=== PATIENT | female | born 1980 | race Caucasian/White ===

== ENCOUNTER 2018-03-05 12:05 | Inpatient (IN) | payer OTHER ==
[~2018-03-05] VITALS: Ht 165.1 cm; Wt 67.7 kg
[~2018-03-05 12:05] MED LIST: ANUSOL1 EACH R; ATIVAN0.5 MG PO; ATIVAN1 MG PO; CLARITIN10 MG PO; DEPO-PROVER150 MG/ML IM; ESTRACE1 M1 PO; METAMUCIL MULTI1 CAP PO; METAMUCIL0.52 G1 PO; NOVAPLUS V0.09 MG/Ac INH; PERCOCET 325 MG1 TA5 PO; PRILOSEC OTC20 MG PO; STOOL SOFTENER100 M3 PO; ZITHROMAX Z PA250 MG PO
[2018-03-05 13:00] VITALS: BP 121/74
[2018-03-05 13:48] LABS: BILIRUBIN NEGATIVE (NEGATIVE); BLOOD NEGATIVE (NEGATIVE); CLARITY CLEAR (CLEAR); COLOR YELLOW (YELLOW); GLUCOSE NEGATIVE (NEGATIVE); KETONE NEGATIVE (NEGATIVE); LEUKO ESTERASE NEGATIVE (NEGATIVE); NITRITE NEGATIVE (NEGATIVE); PH 5.5 (5.0-9.0); SPECIFIC GRAVITY <= 1.005 (1.005-1.030); UROBILINOGEN 0.2 E.U./dl (0.2-1.0)
[2018-03-05 13:49] LABS: URINE AMPHETAMINES < 1000 (1000ng/ml); URINE BARBITURATES < 200 (200ng/ml); URINE BENZODIAZEPINES < 200 (200ng/ml); URINE CANNABINOIDS (THC) > 50 (50ng/ml); URINE COCAINE < 300 (300ng/ml); URINE METHADONE < 300 (300ng/ml); URINE OPIATES < 300 (300ng/ml); URINE PHENCYCLIDINE < 25 (25ng/ml)
[2018-03-05 14:10] LABS: EPITHELIAL CELLS 0-2
[2018-03-05 14:11] LABS: BASO % 0.3 % (0.0-1.0); EOS % 0.1 % (1.0-4.0); HEMOGLOBIN 16.5 g/dl (12.0-16.0); LYMPH # 1.4 10*3/uL (1.3-4.4); LYMPH % 10.3 % (27.0-41.0); MEAN CELL VOLUME 94.2 fl (81.0-99.0); MEAN CORPUSCULAR HGB 33.1 pg (27.0-31.0); MEAN CORPUSCULAR HGB CONC 35.1 g/dl (33.0-37.0); MEAN PLATELET VOLUME 9.4 fl (9.6-12.3); MONO # 0.7 10*3/uL (0.1-1.0); MONO % 5.1 % (3.0-9.0); NEUT # 11.5 10*3/uL (2.3-7.9); NEUT % 83.8 % (47.0-73.0); PLATELET COUNT AUTOMATED 407 10*3/uL (130-400); RED BLOOD COUNT 4.99 10*6/uL (4.10-5.10); RED CELL DISTRI WIDTH 12.4 % (0-14.5); WHITE BLOOD COUNT 13.7 10*3/uL (4.8-10.8)
[2018-03-05 14:21] LABS: PHOSPHOROUS 2.6 mg/dL (2.5-4.9)
[2018-03-05 14:25] LABS: ALBUMIN 4.4 gm/dl (3.1-4.5); ALKALINE PHOSPHATASE 89 U/L (45-117); BUN 5 mg/dl (7-24); CHLORIDE 110 mmol/L (98-107); CREATININE 0.78 mg/dL (0.55-1.02); POTASSIUM 3.6 mmol/L (3.5-5.1); SGOT/AST 19 IU/L (3-35); SGPT/ALT 29 U/L (12-78); SODIUM 142 mmol/L (136-145); TOTAL PROTEIN 8.8 gm/dL (6.4-8.2)
[2018-03-05 14:26] LABS: ETHYL ALCOHOL < 3.0 mg/dl (<3)
[2018-03-05 14:32] LABS: BETA-HCG, QUANT < 1.0 mIU/mL (1-3)
[2018-03-05 16:00] VITALS: BP 114/60
[2018-03-05 20:00] VITALS: BP 108/59
[2018-03-06] VITALS: BP 110/71
[2018-03-06 08:00] VITALS: BP 113/58
[2018-03-06 12:00] VITALS: BP 106/59
[2018-03-06 16:00] VITALS: BP 122/72
[2018-03-06 20:00] VITALS: BP 108/63
[2018-03-07] VITALS: BP 117/78
[2018-03-07 08:00] VITALS: BP 111/60
[2018-03-07 12:00] VITALS: BP 115/57
[2018-03-07 16:00] VITALS: BP 114/72
[2018-03-07] MEDS ORDERED: ATARAX,VISTARIL50 MG PO (17:41)
[2018-03-07] MEDS ORDERED: DULOXETINE HCL30 MG PO (17:41)
[2018-03-07] MEDS ORDERED: NATURE'S BLEND100 M2 PO (17:41)
[2018-03-07] MEDS ORDERED: NATURE'S BLEND F1 MG PO (17:41)
[2018-03-07] MEDS ORDERED: MULTIVITAMINS1 EAC5 PO (17:41)
[2018-03-07] MEDS ORDERED: SEPTDS PO (17:41)
[2018-03-07] MEDS ORDERED: LIBRIUM5 MG PO (17:43)
[2018-03-07 20:00] VITALS: BP 115/60
[2018-03-08] VITALS: BP 108/54
[2018-03-08 06:02] LABS: CREATININE 0.87 mg/dL (0.55-1.02)
[2018-03-08 06:08] LABS: BASO % 0.4 % (0.0-1.0); EOS # 0.1 10*3/uL (0.0-0.4); EOS % 1.7 % (1.0-4.0); HEMATOCRIT 45.4 % (37.0-47.0); HEMOGLOBIN 15.5 g/dl (12.0-16.0); LYMPH # 1.6 10*3/uL (1.3-4.4); LYMPH % 20.4 % (27.0-41.0); MEAN CELL VOLUME 96.2 fl (81.0-99.0); MEAN CORPUSCULAR HGB 32.8 pg (27.0-31.0); MEAN CORPUSCULAR HGB CONC 34.1 g/dl (33.0-37.0); MONO # 0.7 10*3/uL (0.1-1.0); NEUT # 5.3 10*3/uL (2.3-7.9); NEUT % 67.7 % (47.0-73.0); PLATELET COUNT AUTOMATED 326 10*3/uL (130-400); RED BLOOD COUNT 4.72 10*6/uL (4.10-5.10); RED CELL DISTRI WIDTH 11.9 % (0-14.5); WHITE BLOOD COUNT 7.8 10*3/uL (4.8-10.8)
[2018-03-08 08:00] VITALS: BP 102/56
[2018-03-31] MEDS ORDERED: LIBRIUM5 MG PO (17:05)
== END 2018-03-08 08:37 | disposition home or self-care (01) | DRG 880 ==
LOC: 4E 12:05
PROVIDERS: Internal Medicine
DX: F41.9 Anxiety disorder, unspecified (principal); E87.8 Other disorders of electrolyte and fluid balance, not elsewhere classified; L03.90 Cellulitis, unspecified; N61.0 Mastitis without abscess; F10.10 Alcohol abuse, uncomplicated; D47.3 Essential (hemorrhagic) thrombocythemia; D72.829 Elevated white blood cell count, unspecified; F12.90 Cannabis use, unspecified, uncomplicated; R73.9 Hyperglycemia, unspecified; L73.2 Hidradenitis suppurativa; Z71.6 Tobacco abuse counseling; Z72.0 Tobacco use; Z82.49 Family history of ischemic heart disease and other diseases of the circulatory system; Z79.899 Other long term (current) drug therapy; Z81.8 Family history of other mental and behavioral disorders

== ENCOUNTER → 2018-04-04 | Day surgery (SDC) | payer OTHER ==
[~2018-04-04] VITALS: Ht 165.1 cm; Wt 63.0 kg
[~2018-04-04] MED LIST changes: +ATARAX,VISTARIL50 MG PO; +DULOXETINE HCL30 MG PO; +LIBRIUM5 MG PO; +MULTIVITAMINS1 EAC5 PO; +NATURE'S BLEND F1 MG PO; +NATURE'S BLEND100 M2 PO; +SEPTDS PO
--- NOTE | ~2018-04-04 | PROC NOTE ---
[place], [place] PROCEDURE NOTE NAME: JOSEPH NAVARRETE [facility] #: [id number] UNIT #: [id number] ROOM: DOCTOR: JENNA COLLINS MD BIRTHDATE: [birth year] DOS: 04/04/2018 PREOPERATIVE DIAGNOSIS: Right cheek soft tissue mass. POSTOPERATIVE DIAGNOSIS: Right cheek soft tissue mass. PROCEDURE: Excision of right cheek soft tissue mass. SURGEON: Jenna Collins MD [employer]: HYUN. ANESTHESIA: Local (1% plain lidocaine). INDICATIONS: This is a 37-year-old lady here for an excision of a symptomatic right cheek soft tissue mass. The procedure and its complications were explained to the patient in detail preoperatively. Complications that were discussed included, but were not limited to, bleeding, infection, hematoma/seroma formation, and damage to underlying vital structures. He agreed to proceed. DESCRIPTION OF PROCEDURE: After identifying the patient, the patient was brought to the operating suite and laid in the supine position with the head turned to the left side. The parts were then painted and draped in the usual sterile fashion. A time-out procedure was called in and an elliptical incision was marked and infiltrated with 1% plain lidocaine. An incision was made with the help of a 15 blade and deepened in layers. The mass was excised in its entirety after careful dissection with the blade and sent for histopathological diagnosis. Hemostasis was achieved with the help of electrocautery. Thereafter, the subcutaneous tissue and the edges of the skin were approximated with the help of 4-0 Vicryl in a subcuticular fashion. Dressings were placed. The patient tolerated the procedure well and was brought back to the recovery room in stable fashion. There were no complications. Dr. Jenna Collins, the attending surgeon, was present throughout the operating case. Jenna Collins MD CM:PROCNOTE:PROCEDURE NOTE [id number] JENNA COLLINS MD
[2018-04-04 07:44] VITALS: BP 114/64
[2018-04-04 07:58] VITALS: BP 111/67
[2018-04-04 08:03] VITALS: BP 117/68
[2018-04-04 08:08] VITALS: BP 109/62
== END | disposition home or self-care (01) ==
LOC: SDC 04-01 08:00
DX: L72.0 Epidermal cyst (principal); F41.9 Anxiety disorder, unspecified; F17.210 Nicotine dependence, cigarettes, uncomplicated; Z88.8 Allergy status to other drugs, medicaments and biological substances; Z98.890 Other specified postprocedural states

== ENCOUNTER → 2020-02-03 | Outpatient (CLI) | payer OTHER ==
[2020-02-03 11:47] LABS: BASO % 0.4 % (0.0-1.0); EOS # 0.1 10*3/uL (0.0-0.4); EOS % 1.3 % (1.0-4.0); HEMATOCRIT 38.9 % (37.0-47.0); LYMPH # 1.5 10*3/uL (1.3-4.4); LYMPH % 28.3 % (27.0-41.0); MEAN CELL VOLUME 89.4 fl (81.0-99.0); MEAN CORPUSCULAR HGB 30.3 pg (27.0-31.0); MEAN CORPUSCULAR HGB CONC 33.9 g/dl (33.0-37.0); MEAN PLATELET VOLUME 9.5 fl (9.6-12.3); MONO # 0.3 10*3/uL (0.1-1.0); MONO % 6.1 % (3.0-9.0); NEUT # 3.5 10*3/uL (2.3-7.9); NEUT % 63.7 % (47.0-73.0); PLATELET COUNT AUTOMATED 296 10*3/uL (130-400); RED BLOOD COUNT 4.35 10*6/uL (4.10-5.10); RED CELL DISTRI WIDTH 13.2 % (0-14.5); WHITE BLOOD COUNT 5.5 10*3/uL (4.8-10.8)
[2020-02-03 12:18] LABS: ALBUMIN 3.4 gm/dl (3.1-4.5); ALKALINE PHOSPHATASE 86 U/L (45-117); BUN 3 mg/dl (7-24); CHLORIDE 108 mmol/L (98-107); CHOLESTEROL 231 mg/dL (<200); CREATININE 0.68 mg/dL (0.55-1.02); HDL CHOLESTEROL 31 mg/dl (40-60); LDL CHOLESTEROL 163 mg/dL (9-159); POTASSIUM 2.9 mmol/L (3.5-5.1); SGOT/AST 8 IU/L (3-35); SGPT/ALT 14 U/L (12-78); SODIUM 139 mmol/L (136-145); TOTAL PROTEIN 7.4 gm/dL (6.4-8.2); TRIGLYCERIDES 186 mg/dl (<150); VLDL CHOLESTEROL 37 mg/dL (6-40)
[2020-02-03 12:53] LABS: VITAMIN D, 25-HYDROXY 24.9 ng/mL (30-100)
[2020-02-04 14:11] LABS: ANTI-SMOOTH MUSCLE ANTIBODY 18 Units (0-19)
== END | disposition home or self-care (01) ==
LOC: LAB 11:02
PROVIDERS: Nurse Practitioner Family
DX: S63.502A Unspecified sprain of left wrist, initial encounter (principal); E78.1 Pure hyperglyceridemia; E55.9 Vitamin D deficiency, unspecified; E53.8 Deficiency of other specified B group vitamins; E78.2 Mixed hyperlipidemia; K76.0 Fatty (change of) liver, not elsewhere classified; Z83.3 Family history of diabetes mellitus; Z80.9 Family history of malignant neoplasm, unspecified; X58.XXXA Exposure to other specified factors, initial encounter; Y93.89 Activity, other specified; Y92.89 Other specified places as the place of occurrence of the external cause; Y99.8 Other external cause status

== ENCOUNTER → 2022-04-11 | Outpatient (CLI) | payer OTHER | END | disposition home or self-care (01) | LOC: RAD 13:29 | PROVIDERS: ATTEND Family Medicine | DX: M19.041 Primary osteoarthritis, right hand (principal); K76.0 Fatty (change of) liver, not elsewhere classified; K76.89 Other specified diseases of liver ==

== ENCOUNTER → 2022-06-14 | Outpatient (CLI) | payer OTHER | END | disposition home or self-care (01) | LOC: MAMMO 01:37 | PROVIDERS: ATTEND Obstetrics & Gynecology | DX: Z12.31 Encounter for screening mammogram for malignant neoplasm of breast (principal) ==

== ENCOUNTER → 2023-05-07 | Outpatient (CLI) | payer OTHER | END | disposition home or self-care (01) | LOC: US 01:51 | PROVIDERS: ATTEND Obstetrics & Gynecology | DX: R92.2 Inconclusive mammogram (principal); N63.0 Unspecified lump in unspecified breast ==

== ENCOUNTER → 2023-06-05 | Outpatient (CLI) | payer OTHER | END | disposition home or self-care (01) | LOC: MAMMO 00:21 | PROVIDERS: ATTEND Obstetrics & Gynecology | DX: R92.2 Inconclusive mammogram (principal) ==

== ENCOUNTER → 2024-07-14 | Outpatient (CLI) | payer OTHER | END | disposition home or self-care (01) | LOC: MAMMO 06-25 01:37 | PROVIDERS: ATTEND Nurse Practitioner Women's Health | DX: R92.333 Mammographic heterogeneous density, bilateral breasts (principal) ==

== ENCOUNTER → 2025-08-30 | Outpatient (CLI) | payer OTHER | END | disposition home or self-care (01) | LOC: MAMMO 00:37 | PROVIDERS: ATTEND Obstetrics & Gynecology | DX: Z12.31 Encounter for screening mammogram for malignant neoplasm of breast (principal); R92.333 Mammographic heterogeneous density, bilateral breasts ==